=== PATIENT | male | born 1990 | race Caucasian/White ===

== ENCOUNTER 2017-05-10 01:07 | Emergency (ER) | payer OTHER ==
[~2017-05-10] VITALS: Ht 185.4 cm; Wt 72.6 kg
[2017-05-10] MEDS ORDERED: BUSPAR10 MG ORAL (01:13)
[2017-05-10] MEDS ORDERED: BP MEDS (01:18)
--- NOTE | 2017-05-10 01:29 | Emergency Room Report ---
History of Present Illness General Chief Complaint: Seizure Source: Patient, EMS Present Illness HPI This is a 26-year-old male with one episode of seizure 2 years ago. He is not on medication. Currently he is taking BuSpar and Ativan for anxiety. He presents with chief complaint of a seizure activity tonight. He was a passenger and had a tonic-clonic seizure activity. His been witnessed it. Lasted about a minute. No tongue laceration. No incontinence of bowel or urine. Initially he was postictal but back to baseline now. He said that he hasn't had any sleep in the last 48 hours. He said he went without she for 24 hours and then just worked a 12 shift without lunch. Allergies: Coded Allergies: SULFA (SULFONAMIDE ANTIBIOTICS) (Verified Allergy, Unknown, 05/10/17) Patient History Past Medical History: see triage record, old chart reviewed Past Surgical History: none Pertinent Family History: none Social History: Denies: smoking Immunizations: other Reviewed Nursing Documentation: PMH: Agreed, PSxH: Agreed Nursing Documentation-PMH Hx Hypertension: Yes History Of Psychiatric Problem: Yes - ANXIETY Hx Seizures: Yes Review of Systems Eye: Denies: eye pain, blurred vision ENT: Denies: ear pain, nose congestion, throat swelling Respiratory: Denies: cough, shortness of breath Cardiovascular: Denies: chest pain, palpitations Gastrointestinal: Denies: abdominal pain, diarrhea, nausea, vomiting Musculoskeletal: Denies: back pain, joint pain Skin: Denies: rash Neurological: Denies: headache, numbness Endocrine: Denies: increased thirst, increased urine Hematologic/Lymphatic: Denies: easy bruising All Other Systems: negative except mentioned in HPI Physical Exam Vital Signs Date Time Temp Pulse Resp B/P (MAP) Pulse Ox O2 Delivery O2 Flow Rate FiO2 05/10/17 01:13 99.7 141 18 178/92 98 Room Air vitals with tachycardia and htn Sp02 EP Interpretation: reviewed, normal General Appearance: well appearing, no apparent distress, alert Head: normocephalic, atraumatic Eyes: bilateral eye PERRL, bilateral eye EOMI ENT: hearing grossly normal, normal pharynx Neck: full range of motion, supple, no meningismus Respiratory: chest non-tender, lungs clear, normal breath sounds Cardiovascular #1: regular rate, rhythm, no murmur Gastrointestinal: normal bowel sounds, non tender, no mass, no organomegaly, no bruit, non-distended Musculoskeletal: back normal, gait/station normal, normal range of motion Psychiatric: mood/affect normal Skin: warm/dry Medical Decision Making Diagnostic Impression: Primary Impression: Epileptic seizure, generalized Additional Impression: Amphetamine abuse ER Course Patient presents with a tonic-clonic seizure activity. Most likely secondary to sleep deprivation. He is improved now. Heart rate improved. Blood pressure better. I will put him on Keppra. Because of his seizure activity, restrict his driving privileges. He would need to be clear by a neurologist. Labs and UDS pending. No evidence of TIA or CVA. Notice any bleeding. Lab Results Impression labs unremarkable. Rhythm Strip Diag. Results Rhythm Strip Time: 02:48 EP Interpretation: yes Rate: 115 Rhythm: NSR, no PVC's, no ectopy Last Vital Signs Date Time Temp Pulse Resp B/P (MAP) Pulse Ox O2 Delivery O2 Flow Rate FiO2 05/10/17 01:13 99.7 141 18 178/92 98 Room Air Status: improved Disposition: HOME, SELF-CARE Condition: Stable Scripts Levetiracetam (KEPPRA) 500 Mg Tablet 500 MG ORAL EVERY 12 HOURS, #60 TAB 0 Refills Prov: KRISTEN RIVERA M.D. 05/10/17 Patient Instructions: Seizure, Adult Additional Instructions: Followup your DrLydia in 2-[address] because you had a seizure. You would need medical clearance from a neurologist. Return if symptom worsen. KRISTEN RIVERA M.D. May 10, 2017 01:29
[2017-05-10] MEDS ORDERED: levETIRAcetam 1,000mg/NS100ml 100 ML IVPB ONE (01:30)
[2017-05-10 01:48] LABS: BASOPHILS % (AUTO) 1.2 % (0.0-2.0); EOSINOPHILS % (AUTO) 1.5 % (0.0-3.0); HEMATOCRIT 43.6 % (42.0-52.0); HEMOGLOBIN 14.7 G/DL (14.2-18.0); LYMPHOCYTES % (AUTO) 24.8 % (20.0-45.0); MEAN CORPUSCULAR VOLUME 95 FL (80-99); MONOCYTES % (AUTO) 13.1 % (1.0-10.0); NEUTROPHILS % (AUTO) 59.3 % (45.0-75.0); PLATELET COUNT 217 K/UL (150-450); RED BLOOD COUNT 4.57 M/UL (4.70-6.10); RED CELL DISTRIBUTION WIDTH 11.2 % (11.6-14.8); WHITE BLOOD COUNT 6.8 K/UL (4.8-10.8)
[2017-05-10 01:59] LABS: ANION GAP 19 mmol/L (5-15); BLOOD UREA NITROGEN 18 mg/dL (7-18); CALCIUM 10.1 MG/DL (8.5-10.1); CARBON DIOXIDE 21 MMOL/L (21-32); CHLORIDE 96 MMOL/L (98-107); CREATININE 1.3 MG/DL (0.55-1.30); POTASSIUM 3.6 MMOL/L (3.5-5.1); SODIUM 136 MMOL/L (136-145)
[2017-05-10] MEDS ORDERED: KEPPRA500 M4 ORAL (02:48)
[2017-05-10 03:30] VITALS: BP 137/82
== END 2017-05-10 03:30 | disposition home or self-care (01) ==
LOC: EDBD 01:07 → EDSEX 01:07 → EMR 01:23
DX: G40.409 Other generalized epilepsy and epileptic syndromes, not intractable, without status epilepticus (principal); F15.10 Other stimulant abuse, uncomplicated; F41.9 Anxiety disorder, unspecified; I10 Essential (primary) hypertension; Z88.2 Allergy status to sulfonamides
CPT/HCPCS: 36415; 80048; 80307; 85025; 96361; 96365; 99284; J1953